=== PATIENT | female | born 1955 | race Asian ===

== ENCOUNTER 2016-06-07 01:23 | Inpatient (IN) | payer MEDICAID, OTHER ==
[~2016-06-07] VITALS: Ht 167.6 cm; Wt 63.5 kg
[~2016-06-07 01:23] MED LIST: ALBUTEROL; ASPI-1035 PO; FENO160T5 PO; GLIM4TAB2 PO; LOVA40TA73 PO; METF100P3 MC; MONT10TA21 PO
[2016-06-07] MEDS ORDERED: METHYLPREDNISOLONE SOD SUCC 125 MG/2 ML VIAL IV STA (02:04)
[2016-06-07] MEDS ORDERED: ALBUTEROL (0.083%) 2.5MG/3ML NEB HHN STA (02:04)
[2016-06-07] MEDS ORDERED: SODIUM CHLORIDE 0.9% 1,000 ML IV ONE (02:04)
[2016-06-07] MEDS ORDERED: IPRATROPIUM BROMIDE (0.02%) 0.5MG/2.5ML NEB HHN STA (02:04)
[2016-06-07 02:22] LABS: BASOPHILS % 0.6 % (0.0-2.0); EOSINOPHILS % 10.2 % (0.0-5.0); HEMATOCRIT. 41.8 % (36.0-48.0); HEMOGLOBIN. 13.9 g/dL (12.0-16.0); LYMPHOCYTES % 27.4 % (20.0-50.0); MEAN CORPUSCULAR HEMOGLOBIN 28.4 pg (28.0-32.0); MEAN CORPUSCULAR HGB CONC 33.4 g/dL (31.0-37.0); MEAN CORPUSCULAR VOLUME 85.1 fL (81.0-99.0); MEAN PLATELET VOLUME 7.9 fl (7.4-10.4); MONOCYTES % 4.9 % (2.0-8.0); NEUTROPHILS % 56.9 % (40.0-76.0); PLATELET 249 x1000/uL (130-400); RED BLOOD CELL COUNT 4.91 mill/uL (4.2-5.4); RED CELL DISTRIBUTION WIDTH 13.7 % (11.6-14.6); WHITE BLOOD COUNT 12.9 x1000/uL (4.5-11.0)
[2016-06-07 02:37] LABS: ANION GAP 13; CALCIUM 8.5 mg/dL (8.5-10.1); CARBON DIOXIDE 25 mEq/L (21-32); CHLORIDE 106 mEq/L (98-107); INDEX HEMOLYSI 2 (1-3); INDEX ICTERIC 1 (1-4); INDEX LIPEMIC 1 (1-3); NT PRO B-TYPE NATRIURETIC PEP 61 pg/mL (5-125); TROPONIN I 0.02 ng/mL (0.00-0.04); UREA NITROGEN BLOOD 11 mg/dL (7-21); eGFR > 60 mL/min (>60)
[2016-06-07 08:00] VITALS: BP 105/65
[2016-06-07] MEDS ORDERED: CLONIDINE 0.1MG TABLET PO PRN (08:45)
[2016-06-07] MEDS ORDERED: POTASSIUM CHLORIDE 20MEQ TABLET SR PO NR (08:45)
[2016-06-07] MEDS ORDERED: ACETAMINOPHEN 325MG TABLET PO PRN (08:45)
[2016-06-07] MEDS ORDERED: ONDANSETRON HCL 4MG/2ML VIAL IV PRN (08:45)
[2016-06-07] MEDS ORDERED: IPRATROPIUM/ALBUTEROL 0.5-3(2.5)MG/3ML NEB INH PRN (08:45)
[2016-06-07 09:00] VITALS: BP 105/65
[2016-06-07] MEDS ORDERED: FENOFIBRATE MICRONIZED 160 MG PO SCH (09:00)
[2016-06-07] MEDS ORDERED: MONTELUKAST SODIUM 10MG TABLET PO SCH (09:00)
[2016-06-07] MEDS ORDERED: METFORMIN HCL 1000 MG MC SCH (09:00)
[2016-06-07] MEDS ORDERED: MEDICATION NOT ON FORMULARY EA (Lovastatin 40 MG) PO SCH (09:00)
[2016-06-07] MEDS: GLIMEPIRIDE 4MG TABLET PO SCH ×2 (10:36→17:07)
[2016-06-07] MEDS: ASPIRIN 81MG EC TABLET PO SCH (10:36)
[2016-06-07] MEDS: FENOFIBRATE NANOCRYSTALLIZED 145MG TABLET PO SCH (10:36)
[2016-06-07] MEDS: ENOXAPARIN 40MG/0.4ML SYR SUBCUT SCH (10:36)
[2016-06-07] MEDS: IPRATROPIUM/ALBUTEROL 0.5-3(2.5)MG/3ML NEB HHN SCH ×3 (10:56→21:16)
[2016-06-07] MEDS ORDERED: LEVOFLOXACIN 500MG PREMIX 100 ML IV SCH (11:00)
[2016-06-07] MEDS ORDERED: ASPI-1035 PO (11:18)
[2016-06-07] MEDS ORDERED: METF10002 PO (11:18)
[2016-06-07] MEDS ORDERED: METHYLPREDNISOLONE SOD SUCC 125 MG/2 ML VIAL IV SCH (14:00)
[2016-06-07] MEDS ORDERED: PNEUMOCOCCAL 23-VAL P-SAC VAC 0.5 ML IM ONE (14:00)
[2016-06-07] MEDS ORDERED: INFLUENZA VIRUS VACCINE 0.5ML SYR IM ONE (14:00)
[2016-06-07] MEDS: BUDESONIDE 0.5MG/2ML NEB HHN SCH ×2 (15:41→21:11)
[2016-06-07 16:00] VITALS: BP 101/69
[2016-06-07 16:58] LABS: CLARITY URINE CLEAR (CLEAR); COLOR URINE YELLOW (YELLOW); GLUCOSE URINE 3+ (NEGATIVE); KETONES URINE 2+ (NEGATIVE); LEUKOCYTE ESTERASE URINE NEGATIVE (NEGATIVE); NITRITE URINE NEGATIVE (NEGATIVE); OCCULT BLOOD URINE NEGATIVE (NEGATIVE); PROTEIN URINE NEGATIVE (NEGATIVE); SPECIFIC GRAVITY URINE 1.029 (1.005-1.030); UROBILINOGEN URINE 0.2 E.U./dL (0.2-1.0)
[2016-06-07] MEDS: METFORMIN HCL 500MG TABLET PO SCH (17:07)
[2016-06-07 17:26] LABS: *AMPHETAMINES SCREEN URINE NEGATIVE (NEGATIVE); *BARBITURATES SCREEN URINE NEGATIVE (NEGATIVE); *BENZODIAZEPINES SCREEN URINE NEGATIVE (NEGATIVE); *COCAINE SCREEN URINE NEGATIVE (NEGATIVE); CANNABINOID URINE SCREEN NEGATIVE (NEGATIVE); ECSTASY MDMA SCREEN URINE NEGATIVE (NEGATIVE); METHADONE URINE SCREEN NEGATIVE (NEGATIVE); OPIATES URINE SCREEN NEGATIVE (NEGATIVE); PHENCYCLIDINE URINE SCREEN NEGATIVE (NEGATIVE)
[2016-06-07 17:49] LABS: BACTERIA URINE TRACE; RBC URINE 0-2 /hpf (0-2); SQUAMOUS EPITHELIAL CELL URINE FEW /lpf (RARE/1+); WBC URINE 0-2 /hpf (0-2)
[2016-06-07] MEDS: FAMOTIDINE 20MG/2ML VIAL IV SCH (20:16)
[2016-06-07 20:40] VITALS: BP 105/70
[2016-06-07] MEDS ORDERED: ATORVASTATIN CALCIUM 10MG TABLET PO SCH (21:00)
[2016-06-08] VITALS: BP 95/65
[2016-06-08] MEDS: IPRATROPIUM/ALBUTEROL 0.5-3(2.5)MG/3ML NEB HHN SCH ×3 (00:29→08:07)
[2016-06-08 04:00] VITALS: BP 102/67
[2016-06-08 06:07] LABS: BASOPHILS % 0.5 % (0.0-2.0); EOSINOPHILS % 4.6 % (0.0-5.0); HEMATOCRIT. 39.9 % (36.0-48.0); HEMOGLOBIN. 13.2 g/dL (12.0-16.0); LYMPHOCYTES % 26.4 % (20.0-50.0); MEAN CORPUSCULAR HEMOGLOBIN 28.2 pg (28.0-32.0); MEAN CORPUSCULAR VOLUME 85.5 fL (81.0-99.0); MEAN PLATELET VOLUME 8.6 fl (7.4-10.4); MONOCYTES % 7.2 % (2.0-8.0); NEUTROPHILS % 61.3 % (40.0-76.0); PLATELET 250 x1000/uL (130-400); RED BLOOD CELL COUNT 4.67 mill/uL (4.2-5.4); RED CELL DISTRIBUTION WIDTH 13.7 % (11.6-14.6)
[2016-06-08 06:33] LABS: ANION GAP 12; CALCIUM 8.5 mg/dL (8.5-10.1); CARBON DIOXIDE 27 mEq/L (21-32); CHLORIDE 104 mEq/L (98-107); INDEX HEMOLYSI 1 (1-3); INDEX ICTERIC 1 (1-4); INDEX LIPEMIC 1 (1-3); UREA NITROGEN BLOOD 14 mg/dL (7-21); eGFR > 60 mL/min (>60)
[2016-06-08] MEDS: METFORMIN HCL 500MG TABLET PO SCH (08:47)
[2016-06-08] MEDS: ENOXAPARIN 40MG/0.4ML SYR SUBCUT SCH (08:47)
[2016-06-08] MEDS: FAMOTIDINE 20MG/2ML VIAL IV SCH (08:47)
[2016-06-08] MEDS: ASPIRIN 81MG EC TABLET PO SCH (08:48)
[2016-06-08] MEDS: GLIMEPIRIDE 4MG TABLET PO SCH (08:48)
[2016-06-08] MEDS: FENOFIBRATE NANOCRYSTALLIZED 145MG TABLET PO SCH (08:48)
[2016-06-08] MEDS ORDERED: Fluticasone Propionate BOTHNSTRLS (10:18)
[2016-06-08 10:28] VITALS: BP 95/60
[2016-06-08] MEDS ORDERED: FLUTICASONE PROPIONATE 50MCG/SPRAY BOTTLE BOTHNSTRLS SCH (21:00)
== END 2016-06-08 11:05 | disposition home or self-care (01) | DRG 133 ==
LOC: ER 01:24 → 5WST 04:07
PROVIDERS: ADMIT Internal Medicine Nephrology; ATTEND Internal Medicine Nephrology
DX: J96.01 Acute respiratory failure with hypoxia (principal); E11.65 Type 2 diabetes mellitus with hyperglycemia; J44.9 Chronic obstructive pulmonary disease, unspecified; I10 Essential (primary) hypertension; J45.901 Unspecified asthma with (acute) exacerbation; E78.00 Pure hypercholesterolemia, unspecified; E87.6 Hypokalemia; D72.829 Elevated white blood cell count, unspecified; J30.9 Allergic rhinitis, unspecified
CPT/HCPCS: 36415; 71010; 80048; 80061; 80305; 81001; 83036; 83880; 84484; 85025; 93005; 96361; 96374; 99285; J1650; J1956; J2930; J3490; J7030; J7611; J7620; J7626

== ENCOUNTER 2016-07-03 02:08 | Inpatient (IN) | payer BC, MEDICAID ==
[~2016-07-03] VITALS: Ht 157.5 cm; Wt 67.8 kg
[~2016-07-03 02:08] MED LIST changes: +Fluticasone Propionate BOTHNSTRLS
[2016-07-03] MEDS ORDERED: IPRATROPIUM BROMIDE (0.02%) 0.5MG/2.5ML NEB HHN STA (02:15)
[2016-07-03] MEDS ORDERED: METHYLPREDNISOLONE SOD SUCC 125 MG/2 ML VIAL IV STA (02:15)
[2016-07-03] MEDS ORDERED: ALBUTEROL (0.083%) 2.5MG/3ML NEB HHN STA (02:15)
[2016-07-03 02:43] LABS: BASOPHILS % 1.2 % (0.0-2.0); EOSINOPHILS % 12.6 % (0.0-5.0); HEMATOCRIT. 42.4 % (36.0-48.0); HEMOGLOBIN. 14.5 g/dL (12.0-16.0); LYMPHOCYTES % 28.2 % (20.0-50.0); MEAN CORPUSCULAR HEMOGLOBIN 28.6 pg (28.0-32.0); MEAN CORPUSCULAR HGB CONC 34.2 g/dL (31.0-37.0); MEAN CORPUSCULAR VOLUME 83.6 fL (81.0-99.0); MONOCYTES % 7.7 % (2.0-8.0); NEUTROPHILS % 50.3 % (40.0-76.0); PLATELET 276 x1000/uL (130-400); RED BLOOD CELL COUNT 5.08 mill/uL (4.2-5.4); RED CELL DISTRIBUTION WIDTH 13.3 % (11.6-14.6); WHITE BLOOD COUNT 7.5 x1000/uL (4.5-11.0)
[2016-07-03 02:48] LABS: PROTHROMBIN TIME 10.4 sec
[2016-07-03 02:57] LABS: ALANINE AMINOTRANSFERASE 20 IU/L (13-61); ALBUMIN 3.8 g/dL (3.4-5.0); CALCIUM 8.8 mg/dL (8.5-10.1); CARBON DIOXIDE 28 mEq/L (21-32); INDEX HEMOLYSI 1 (1-3); INDEX ICTERIC 1 (1-4); INDEX LIPEMIC 1 (1-3); NT PRO B-TYPE NATRIURETIC PEP 14 pg/mL (5-125); TROPONIN I < 0.02 ng/mL (0.00-0.04); UREA NITROGEN BLOOD 9 mg/dL (7-21); eGFR > 60 mL/min (>60)
[2016-07-03 03:25] LABS: ANION GAP 15; CHLORIDE 103 mEq/L (98-107)
[2016-07-03 08:50] VITALS: BP 101/68
[2016-07-03] MEDS ORDERED: INSU3INS6 SUBCUT (09:29)
[2016-07-03] MEDS ORDERED: ASPI-1035 PO (09:29)
[2016-07-03] MEDS ORDERED: METF10002 PO (09:29)
[2016-07-03] MEDS ORDERED: ALBU6.7H INH (09:29)
[2016-07-03] MEDS ORDERED: NA PHOS,M-B/NA PHOS,DI-BA ENEMA 118ML PR PRN (09:45)
[2016-07-03] MEDS ORDERED: DIPHENHYDRAMINE 50MG/ML VIAL IV PRN (09:45)
[2016-07-03] MEDS ORDERED: MAGNESIUM/ALUMINUM HYDROXIDE/SIMETHICONE 30ML UDC PO PRN (09:45)
[2016-07-03] MEDS ORDERED: ACETAMINOPHEN 325MG TABLET PO PRN (09:45)
[2016-07-03] MEDS ORDERED: LORAZEPAM 2MG/ML CPJ IV PRN (09:45)
[2016-07-03] MEDS ORDERED: TRAMADOL 50MG TABLET PO PRN (09:45)
[2016-07-03] MEDS ORDERED: IPRATROPIUM/ALBUTEROL 0.5-3(2.5)MG/3ML NEB INH PRN (09:45)
[2016-07-03] MEDS ORDERED: NITROGLYCERIN 0.4MG TABLET SL SL PRN (09:45)
[2016-07-03] MEDS ORDERED: CLONIDINE 0.1MG TABLET PO PRN (09:45)
[2016-07-03] MEDS ORDERED: ZOLPIDEM TARTRATE 5MG TABLET PO PRN (09:45)
[2016-07-03] MEDS ORDERED: GUAIFENESIN 200MG/10ML SUGAR FREE UDC PO PRN (09:45)
[2016-07-03] MEDS ORDERED: DOCUSATE SODIUM 100MG CAPSULE PO PRN (09:45)
[2016-07-03] MEDS ORDERED: KETOROLAC 30MG/ML VIAL IV PRN (09:45)
[2016-07-03] MEDS ORDERED: DEXTROSE 50% WATER 50ML SYRINGE IV PRN (09:45)
[2016-07-03] MEDS ORDERED: ONDANSETRON HCL 4MG/2ML VIAL IV PRN (09:45)
[2016-07-03] MEDS: ENOXAPARIN 40MG/0.4ML SYR SUBCUT SCH (11:29)
[2016-07-03] MEDS: INSULIN DETEMIR UD 100 UNITS/ML SYR SUBCUT SCH (11:30)
[2016-07-03] MEDS ORDERED: LEVOFLOXACIN 500MG PREMIX 100 ML IV SCH (11:30)
[2016-07-03 12:00] VITALS: BP 98/60
[2016-07-03] MEDS: IPRATROPIUM/ALBUTEROL 0.5-3(2.5)MG/3ML NEB HHN SCH ×3 (12:05→20:40)
[2016-07-03] MEDS: BLOOD SUGAR DIAGNOSTIC STRIP TEST SCH ×3 (12:39→21:36)
[2016-07-03] MEDS: INSULIN LISPRO 100 UNITS/ML SUBCUT SCH ×5 (12:49→21:40)
[2016-07-03] MEDS ORDERED: PNEUMOCOCCAL 23-VAL P-SAC VAC 0.5 ML IM ONE (13:00)
[2016-07-03 14:24] LABS: INDEX LIPEMIC 1 (1-3)
[2016-07-03 14:27] LABS: CREATINE KINASE 56 IU/L (26-192); CREATINE KINASE MB FRACTION 0.8 ng/mL (0.5-3.6); INDEX HEMOLYSI 1 (1-3); TROPONIN I < 0.02 ng/mL (0.00-0.04)
[2016-07-03] MEDS: METHYLPREDNISOLONE SOD SUCC 125 MG/2 ML VIAL IV SCH ×2 (15:19→21:32)
[2016-07-03 16:00] VITALS: BP 103/68
[2016-07-03 20:00] VITALS: BP 102/63
[2016-07-03] MEDS: GUAIFENESIN 600MG ER TABLET PO SCH (21:32)
[2016-07-03] MEDS: ASCORBIC ACID 500 MG TABLET PO SCH (21:32)
[2016-07-03 23:36] LABS: CREATINE KINASE 48 IU/L (26-192); CREATINE KINASE MB FRACTION 0.9 ng/mL (0.5-3.6); INDEX HEMOLYSI 1 (1-3); TROPONIN I < 0.02 ng/mL (0.00-0.04)
[2016-07-04] VITALS: BP 102/60
[2016-07-04] MEDS: IPRATROPIUM/ALBUTEROL 0.5-3(2.5)MG/3ML NEB HHN SCH ×3 (00:45→08:06)
[2016-07-04 04:00] VITALS: BP 92/61
[2016-07-04] MEDS: METHYLPREDNISOLONE SOD SUCC 125 MG/2 ML VIAL IV SCH (05:38)
[2016-07-04] MEDS: BLOOD SUGAR DIAGNOSTIC STRIP TEST SCH (05:51)
[2016-07-04 08:00] VITALS: BP 90/65
[2016-07-04] MEDS: ASCORBIC ACID 500 MG TABLET PO SCH (08:36)
[2016-07-04] MEDS: GUAIFENESIN 600MG ER TABLET PO SCH (08:36)
[2016-07-04] MEDS: INSULIN LISPRO 100 UNITS/ML SUBCUT SCH ×2 (08:37)
[2016-07-04] MEDS ORDERED: ASPIRIN 325MG EC TABLET PO SCH (09:00)
[2016-07-04] MEDS ORDERED: ZINC SULFATE 220 MG ( 50 ) CAPSULE PO SCH (09:00)
[2016-07-04] MEDS ORDERED: PANTOPRAZOLE SODIUM 40 MG/VIAL IV SCH (10:30)
[2016-07-04] MEDS: ENOXAPARIN 40MG/0.4ML SYR SUBCUT SCH (10:59)
[2016-07-04] MEDS: INSULIN DETEMIR UD 100 UNITS/ML SYR SUBCUT SCH (11:01)
[2016-07-04 11:15] VITALS: BP 92/59
[2016-07-04 11:45] VITALS: BP 92/59
[2016-07-04 12:49] LABS: *AMPHETAMINES SCREEN URINE NEGATIVE (NEGATIVE); *BARBITURATES SCREEN URINE NEGATIVE (NEGATIVE); *BENZODIAZEPINES SCREEN URINE NEGATIVE (NEGATIVE); *COCAINE SCREEN URINE NEGATIVE (NEGATIVE); CANNABINOID URINE SCREEN NEGATIVE (NEGATIVE); ECSTASY MDMA SCREEN URINE NEGATIVE (NEGATIVE); METHADONE URINE SCREEN NEGATIVE (NEGATIVE); OPIATES URINE SCREEN NEGATIVE (NEGATIVE); PHENCYCLIDINE URINE SCREEN NEGATIVE (NEGATIVE)
== END 2016-07-04 11:52 | disposition home or self-care (01) | DRG 140 ==
LOC: ER 02:33 → 7WST 05:30 → MERGE 05:30
PROVIDERS: ADMIT Internal Medicine; ATTEND Internal Medicine
DX: J44.1 Chronic obstructive pulmonary disease with (acute) exacerbation (principal); E11.65 Type 2 diabetes mellitus with hyperglycemia; I10 Essential (primary) hypertension; J45.909 Unspecified asthma, uncomplicated
CPT/HCPCS: 36415; 71010; 80053; 80305; 82550; 82553; 82947; 82962; 83036; 83880; 84484; 85025; 85610; 90732; 93005; 93970; 96374; 99285; C9113; J1650; J1815; J1956; J2930; J7050; J7611; J7620

== ENCOUNTER 2016-07-08 06:30 | Inpatient (IN) | payer SELFPAY ==
[~2016-07-08] VITALS: Ht 157.5 cm; Wt 66.2 kg
[2016-07-08] VITALS (7 sets, daily range): BP systolic 93–130; BP diastolic 63–73
[~2016-07-08 06:30] MED LIST changes: +ALBU6.7H INH; +INSU3INS6 SUBCUT; +METF10002 PO
[2016-07-08] MEDS ORDERED: METHYLPREDNISOLONE SOD SUCC 125 MG/2 ML VIAL IV STA (06:32)
[2016-07-08] MEDS ORDERED: SODIUM CHLORIDE 0.9% 1,000 ML IV ONE (06:32)
[2016-07-08] MEDS ORDERED: IPRATROPIUM/ALBUTEROL 0.5-3(2.5)MG/3ML NEB HHN ONE (06:45)
[2016-07-08] MEDS ORDERED: MAGNESIUM 2 G PREMIX 50 ML IV ONE (06:45)
[2016-07-08 07:00] LABS: BASOPHILS % 0.7 % (0.0-2.0); EOSINOPHILS % 11.1 % (0.0-5.0); HEMOGLOBIN. 14.4 g/dL (12.0-16.0); LYMPHOCYTES % 40.1 % (20.0-50.0); MEAN CORPUSCULAR HEMOGLOBIN 28.3 pg (28.0-32.0); MEAN CORPUSCULAR HGB CONC 32.7 g/dL (31.0-37.0); MEAN CORPUSCULAR VOLUME 86.6 fL (81.0-99.0); MEAN PLATELET VOLUME 8.5 fl (7.4-10.4); MONOCYTES % 5.2 % (2.0-8.0); NEUTROPHILS % 42.9 % (40.0-76.0); PLATELET 332 x1000/uL (130-400); RED BLOOD CELL COUNT 5.09 mill/uL (4.2-5.4); RED CELL DISTRIBUTION WIDTH 13.3 % (11.6-14.6); WHITE BLOOD COUNT 12.2 x1000/uL (4.5-11.0)
[2016-07-08 07:02] LABS: PROTHROMBIN TIME 10.2 sec
[2016-07-08 07:07] LABS: BG BASE EXCESS -4.6 mmol/L (-2.0-2.0); BG BILEVEL POS AIRWAY PRESSURE 15/5; BG CARBOXYHEMOGLOBIN 0.2 % (0.5-1.5); BG DEOXYHEMOGLOBIN 0.7 % (0.0-5.0); BG METHEMOGLOBIN 0.2 % (0.0-1.5); BG OXYGEN SATURATION 99.3 % (92.0-98.5); BG OXYHEMOGLOBIN 98.9 % (94.0-97.0); BG PCO2 46.6 mmHg (35.0-45.0); BG PH 7.292 (7.350-7.450); BG PO2 234.2 mmHg (75.0-100.0); BG SAMPLE SITE RIGHT RADIAL; BG TOTAL HEMOGLOBIN 13.9 g/dL (12.0-18.0); BG VENT MODE MASK - BIPAP; BG VENT RATE 20 set
[2016-07-08 07:09] LABS: ALANINE AMINOTRANSFERASE 73 IU/L (13-61); ALBUMIN 3.4 g/dL (3.4-5.0); ANION GAP 20; CALCIUM 8.4 mg/dL (8.5-10.1); CARBON DIOXIDE 20 mEq/L (21-32); CHLORIDE 102 mEq/L (98-107); INDEX HEMOLYSI 3 (1-3); INDEX ICTERIC 1 (1-4); INDEX LIPEMIC 1 (1-3); NT PRO B-TYPE NATRIURETIC PEP 42 pg/mL (5-125); TROPONIN I < 0.02 ng/mL (0.00-0.04); UREA NITROGEN BLOOD 10 mg/dL (7-21); eGFR > 60 mL/min (>60)
[2016-07-08] MEDS ORDERED: INSULIN REGULAR (HUMULIN R) UD 100 UNITS/ML SYR SUBCUT ONE (07:15)
[2016-07-08] MEDS ORDERED: INSULIN REGULAR (HUMULIN R) 300UNITS/3ML ONE (08:38)
[2016-07-08] MEDS ORDERED: CLONIDINE 0.1MG TABLET PO PRN (09:30)
[2016-07-08 11:23] LABS: CLARITY URINE CLEAR (CLEAR); COLOR URINE YELLOW (YELLOW); GLUCOSE URINE 3+ (NEGATIVE); KETONES URINE 1+ (NEGATIVE); LEUKOCYTE ESTERASE URINE NEGATIVE (NEGATIVE); NITRITE URINE NEGATIVE (NEGATIVE); OCCULT BLOOD URINE NEGATIVE (NEGATIVE); PROTEIN URINE NEGATIVE (NEGATIVE); SPECIFIC GRAVITY URINE 1.026 (1.005-1.030); UROBILINOGEN URINE 0.2 E.U./dL (0.2-1.0)
[2016-07-08 11:35] LABS: SQUAMOUS EPITHELIAL CELL URINE 1+ /lpf (RARE/1+)
[2016-07-08 11:36] LABS: BACTERIA URINE NONE SEEN; RBC URINE 0-2 /hpf (0-2); WBC URINE 0-2 /hpf (0-2)
[2016-07-08 11:37] LABS: YEAST URINE RARE
[2016-07-08 11:42] LABS: *AMPHETAMINES SCREEN URINE NEGATIVE (NEGATIVE); *BARBITURATES SCREEN URINE NEGATIVE (NEGATIVE); *BENZODIAZEPINES SCREEN URINE NEGATIVE (NEGATIVE); *COCAINE SCREEN URINE NEGATIVE (NEGATIVE); CANNABINOID URINE SCREEN NEGATIVE (NEGATIVE); ECSTASY MDMA SCREEN URINE NEGATIVE (NEGATIVE); METHADONE URINE SCREEN NEGATIVE (NEGATIVE); OPIATES URINE SCREEN NEGATIVE (NEGATIVE); PHENCYCLIDINE URINE SCREEN NEGATIVE (NEGATIVE)
[2016-07-08] MEDS ORDERED: GUAI600T PO (12:19)
[2016-07-08] MEDS ORDERED: TIOT18CA3 INH (12:19)
[2016-07-08] MEDS ORDERED: INSU100C6 SQ (12:19)
[2016-07-08] MEDS ORDERED: INSLAN SQ (12:19)
[2016-07-08] MEDS ORDERED: FLUT1DIS3 INH (12:19)
[2016-07-08] MEDS ORDERED: HYDROCODONE/ACETAMINOPHEN 5/325MG TABLET PO PRN (12:30)
[2016-07-08] MEDS ORDERED: DEXTROSE 50% WATER 50ML SYRINGE IV PRN (12:30)
[2016-07-08] MEDS ORDERED: HYDROMORPHONE HCL/PF 2MG/ML CPJ IV PRN (12:30)
[2016-07-08] MEDS ORDERED: MAGNESIUM/ALUMINUM HYDROXIDE/SIMETHICONE 30ML UDC PO PRN (12:30)
[2016-07-08] MEDS ORDERED: DOCUSATE SODIUM 100MG CAPSULE PO PRN (12:30)
[2016-07-08] MEDS ORDERED: DIPHENHYDRAMINE 50MG/ML VIAL IV PRN (12:30)
[2016-07-08] MEDS ORDERED: NA PHOS,M-B/NA PHOS,DI-BA ENEMA 118ML PR PRN (12:30)
[2016-07-08] MEDS: ENOXAPARIN 40MG/0.4ML SYR SUBCUT SCH (12:54)
[2016-07-08] MEDS: BLOOD SUGAR DIAGNOSTIC STRIP TEST SCH ×3 (12:55→21:53)
[2016-07-08] MEDS ORDERED: ACETAMINOPHEN 325MG TABLET PO PRN (13:00)
[2016-07-08] MEDS ORDERED: LORAZEPAM 2MG/ML CPJ IV PRN (13:00)
[2016-07-08] MEDS ORDERED: GUAIFENESIN 200MG/10ML SUGAR FREE UDC PO PRN (13:00)
[2016-07-08] MEDS: INSULIN LISPRO 100 UNITS/ML SUBCUT SCH ×3 (13:02→21:53)
[2016-07-08] MEDS: METHYLPREDNISOLONE SOD SUCC 125 MG/2 ML VIAL IV SCH ×2 (13:20→21:52)
[2016-07-08] MEDS ORDERED: ONDANSETRON HCL 4MG/2ML VIAL IV PRN (13:30)
[2016-07-08] MEDS ORDERED: LEVOFLOXACIN 500MG PREMIX 100 ML IV SCH (14:00)
[2016-07-08 17:13] LABS: ANION GAP 14; CALCIUM 8.5 mg/dL (8.5-10.1); CARBON DIOXIDE 26 mEq/L (21-32); CHLORIDE 103 mEq/L (98-107); CREATINE KINASE 45 IU/L (26-192); CREATINE KINASE MB FRACTION 1.5 ng/mL (0.5-3.6); INDEX HEMOLYSI 1 (1-3); INDEX ICTERIC 1 (1-4); INDEX LIPEMIC 1 (1-3); NT PRO B-TYPE NATRIURETIC PEP 467 pg/mL (5-125); TROPONIN I 0.09 ng/mL (0.00-0.04); UREA NITROGEN BLOOD 10 mg/dL (7-21); eGFR > 60 mL/min (>60)
[2016-07-08] MEDS: IPRATROPIUM/ALBUTEROL 0.5-3(2.5)MG/3ML NEB INH PRN (20:33)
[2016-07-08] MEDS: BUDESONIDE 0.5MG/2ML NEB HHN SCH (20:33)
[2016-07-08] MEDS: FAMOTIDINE 20MG/2ML VIAL IV SCH (21:52)
[2016-07-08] MEDS: LORATADINE 10MG TABLET PO SCH (21:52)
[2016-07-09] VITALS (11 sets, daily range): BP systolic 92–117; BP diastolic 34–72
[2016-07-09] MEDS: IPRATROPIUM/ALBUTEROL 0.5-3(2.5)MG/3ML NEB INH PRN ×3 (00:29→08:48)
[2016-07-09 01:18] LABS: CREATINE KINASE MB FRACTION 0.9 ng/mL (0.5-3.6); TROPONIN I 0.06 ng/mL (0.00-0.04)
[2016-07-09] MEDS: METHYLPREDNISOLONE SOD SUCC 125 MG/2 ML VIAL IV SCH ×4 (01:59→22:18)
[2016-07-09 05:39] LABS: BASOPHILS % 0.1 % (0.0-2.0); EOSINOPHILS % 0.1 % (0.0-5.0); HEMATOCRIT. 41.1 % (36.0-48.0); HEMOGLOBIN. 13.6 g/dL (12.0-16.0); LYMPHOCYTES % 9.9 % (20.0-50.0); MEAN CORPUSCULAR HEMOGLOBIN 28.2 pg (28.0-32.0); MEAN CORPUSCULAR HGB CONC 33.1 g/dL (31.0-37.0); MEAN PLATELET VOLUME 8.4 fl (7.4-10.4); MONOCYTES % 1.8 % (2.0-8.0); NEUTROPHILS % 88.1 % (40.0-76.0); PLATELET 274 x1000/uL (130-400); RED BLOOD CELL COUNT 4.84 mill/uL (4.2-5.4); RED CELL DISTRIBUTION WIDTH 13.2 % (11.6-14.6); WHITE BLOOD COUNT 9.4 x1000/uL (4.5-11.0)
[2016-07-09 06:34] LABS: CHLORIDE 100 mEq/L (98-107); INDEX HEMOLYSI 1 (1-3); INDEX ICTERIC 1 (1-4); INDEX LIPEMIC 1 (1-3)
[2016-07-09 07:12] LABS: ALANINE AMINOTRANSFERASE 49 IU/L (13-61); ALBUMIN 3.2 g/dL (3.4-5.0); ANION GAP 18; CALCIUM 8.4 mg/dL (8.5-10.1); CARBON DIOXIDE 23 mEq/L (21-32); CREATINE KINASE 37 IU/L (26-192); CREATINE KINASE MB FRACTION 0.9 ng/mL (0.5-3.6); HDL CHOLESTEROL 65 mg/dL (40-59); LDL CHOLESTEROL 162 mg/dL (5-100); T4 FREE 1.29 ng/dL (0.76-1.46); TRIGLYCERIDE 101 mg/dL (0-150); UREA NITROGEN BLOOD 13 mg/dL (7-21); eGFR > 60 mL/min (>60)
[2016-07-09] MEDS: INSULIN LISPRO 100 UNITS/ML SUBCUT SCH ×7 (08:18→22:17)
[2016-07-09] MEDS: BLOOD SUGAR DIAGNOSTIC STRIP TEST SCH ×4 (08:19→21:00)
[2016-07-09] MEDS: BUDESONIDE 0.5MG/2ML NEB HHN SCH ×2 (08:48→19:58)
[2016-07-09] MEDS ORDERED: FUROSEMIDE 40MG/4ML VIAL IV SCH (09:00)
[2016-07-09] MEDS: ASPIRIN 81MG EC TABLET PO SCH (09:42)
[2016-07-09] MEDS: FAMOTIDINE 20MG/2ML VIAL IV SCH ×2 (09:42→22:18)
[2016-07-09] MEDS: ENOXAPARIN 40MG/0.4ML SYR SUBCUT SCH (12:49)
[2016-07-09] MEDS ORDERED: DEXTROSE 50% WATER 50ML SYRINGE IV PRN (18:15)
[2016-07-09] MEDS ORDERED: BLOOD SUGAR DIAGNOSTIC STRIP TEST SCH (21:00)
[2016-07-09] MEDS: LORATADINE 10MG TABLET PO SCH (22:18)
[2016-07-10] VITALS (10 sets, daily range): BP systolic 103–156; BP diastolic 63–77
[2016-07-10] MEDS: METHYLPREDNISOLONE SOD SUCC 125 MG/2 ML VIAL IV SCH ×2 (02:44→09:03)
[2016-07-10] MEDS: BLOOD SUGAR DIAGNOSTIC STRIP TEST SCH ×4 (08:24→21:05)
[2016-07-10] MEDS: ASPIRIN 81MG EC TABLET PO SCH (09:04)
[2016-07-10] MEDS: FAMOTIDINE 20MG/2ML VIAL IV SCH ×2 (09:04→21:00)
[2016-07-10] MEDS: INSULIN LISPRO 100 UNITS/ML SUBCUT SCH ×7 (09:06→21:00)
[2016-07-10] MEDS: IPRATROPIUM/ALBUTEROL 0.5-3(2.5)MG/3ML NEB INH PRN (09:40)
[2016-07-10] MEDS: BUDESONIDE 0.5MG/2ML NEB HHN SCH ×2 (09:41→20:28)
[2016-07-10] MEDS: ENOXAPARIN 40MG/0.4ML SYR SUBCUT SCH (12:19)
[2016-07-10] MEDS: PREDNISONE 20MG TABLET PO SCH (18:08)
[2016-07-10] MEDS: LORATADINE 10MG TABLET PO SCH (21:00)
[2016-07-11] VITALS: BP 94/57
[2016-07-11 04:00] VITALS: BP 119/78
[2016-07-11] MEDS: BLOOD SUGAR DIAGNOSTIC STRIP TEST SCH (05:40)
[2016-07-11 06:12] LABS: BASOPHILS % 0.2 % (0.0-2.0); HEMATOCRIT. 38.8 % (36.0-48.0); LYMPHOCYTES % 17.4 % (20.0-50.0); MEAN CORPUSCULAR HEMOGLOBIN 28.2 pg (28.0-32.0); MEAN CORPUSCULAR HGB CONC 33.4 g/dL (31.0-37.0); MEAN CORPUSCULAR VOLUME 84.3 fL (81.0-99.0); MEAN PLATELET VOLUME 8.7 fl (7.4-10.4); MONOCYTES % 7.1 % (2.0-8.0); NEUTROPHILS % 75.3 % (40.0-76.0); PLATELET 270 x1000/uL (130-400); RED CELL DISTRIBUTION WIDTH 13.1 % (11.6-14.6); WHITE BLOOD COUNT 10.6 x1000/uL (4.5-11.0)
[2016-07-11 06:29] LABS: ANION GAP 12; CALCIUM 8.7 mg/dL (8.5-10.1); CARBON DIOXIDE 27 mEq/L (21-32); CHLORIDE 102 mEq/L (98-107); INDEX HEMOLYSI 1 (1-3); INDEX ICTERIC 1 (1-4); INDEX LIPEMIC 1 (1-3); UREA NITROGEN BLOOD 22 mg/dL (7-21); eGFR > 60 mL/min (>60)
[2016-07-11 08:00] VITALS: BP 123/75
[2016-07-11] MEDS: ASPIRIN 81MG EC TABLET PO SCH (08:31)
[2016-07-11] MEDS: INSULIN LISPRO 100 UNITS/ML SUBCUT SCH ×2 (08:32→08:33)
[2016-07-11] MEDS: FAMOTIDINE 20MG/2ML VIAL IV SCH (08:35)
[2016-07-11] MEDS: PREDNISONE 20MG TABLET PO SCH (08:38)
[2016-07-11] MEDS: BUDESONIDE 0.5MG/2ML NEB HHN SCH (09:30)
[2016-07-11 10:11] VITALS: BP 142/92
== END 2016-07-11 10:30 | disposition home or self-care (01) | DRG 140 ==
LOC: ER 06:36 → 5EST 08:14 → 7WST 07-10 12:30
PROVIDERS: ADMIT Internal Medicine; ATTEND Internal Medicine
PROC: 5A09357 Assistance with Respiratory Ventilation, Less than 24 Consecutive Hours, Continuous Positive Airway Pressure (ICD-10-PCS; principal; 2016-07-08)
DX: J44.0 Chronic obstructive pulmonary disease with (acute) lower respiratory infection (principal); J96.00 Acute respiratory failure, unspecified whether with hypoxia or hypercapnia; G93.40 Encephalopathy, unspecified; J18.9 Pneumonia, unspecified organism; I11.0 Hypertensive heart disease with heart failure; E87.8 Other disorders of electrolyte and fluid balance, not elsewhere classified; I50.32 Chronic diastolic (congestive) heart failure; J45.901 Unspecified asthma with (acute) exacerbation; E11.65 Type 2 diabetes mellitus with hyperglycemia; J44.9 Chronic obstructive pulmonary disease, unspecified; E86.0 Dehydration; E78.5 Hyperlipidemia, unspecified; I25.10 Atherosclerotic heart disease of native coronary artery without angina pectoris
CPT/HCPCS: 36415; 36600; 71010; 80048; 80053; 80061; 80305; 81001; 82375; 82550; 82553; 82805; 82962; 83036; 83880; 84439; 84443; 84484; 85025; 85379; 85610; 87040; 87086; 93005; 93306; 93970; 94640; 94660; 96365; 96372; 96375; 99285; J1650; J1815; J1956; J2930; J3475; J3490; J7030; J7050; J7512; J7620; J7626

== ENCOUNTER 2016-08-13 23:51 | Emergency (ER) | payer SELFPAY ==
[~2016-08-13] VITALS: Ht 167.6 cm; Wt 82.0 kg
[~2016-08-13 23:51] MED LIST changes: -ALBUTEROL; +FLUT1DIS3 INH; +GUAI600T PO; +INSLAN SQ; +INSU100C6 SQ; -METF100P3 MC; +TIOT18CA3 INH
[2016-08-14] MEDS ORDERED: IPRATROPIUM BROMIDE (0.02%) 0.5MG/2.5ML NEB HHN STA (00:58)
[2016-08-14] MEDS ORDERED: ALBUTEROL (0.083%) 2.5MG/3ML NEB HHN STA (00:58)
[2016-08-14 01:14] LABS: EOSINOPHILS % 10.7 % (0.0-5.0); HEMATOCRIT. 41.4 % (36.0-48.0); LYMPHOCYTES % 26.9 % (20.0-50.0); MEAN CORPUSCULAR HEMOGLOBIN 28.1 pg (28.0-32.0); MEAN CORPUSCULAR VOLUME 83.1 fL (81.0-99.0); MEAN PLATELET VOLUME 8.1 fl (7.4-10.4); MONOCYTES % 9.8 % (2.0-8.0); NEUTROPHILS % 51.6 % (40.0-76.0); PLATELET 290 x1000/uL (130-400); RED BLOOD CELL COUNT 4.99 mill/uL (4.2-5.4)
[2016-08-14 01:32] LABS: CARBON DIOXIDE 27 mEq/L (21-32); CHLORIDE 99 mEq/L (98-107); TROPONIN I < 0.02 ng/mL (0.00-0.04)
[2016-08-14] MEDS ORDERED: INSULIN REGULAR (HUMULIN R) 300UNITS/3ML SUBCUT ONE (02:30)
[2016-08-14 02:49] VITALS: BP 109/66
== END 2016-08-14 04:09 | disposition home or self-care (01) ==
LOC: ER 08-14 00:20
DX: J45.901 Unspecified asthma with (acute) exacerbation (principal); J98.01 Acute bronchospasm; E11.9 Type 2 diabetes mellitus without complications; Z79.4 Long term (current) use of insulin; Z79.82 Long term (current) use of aspirin
CPT/HCPCS: 36415; 71010; 80048; 83880; 84484; 85025; 93005; 94640; 96372; 99285; J1815; J7611; Z7610

== ENCOUNTER 2016-08-20 17:11 | Inpatient (IN) | payer SELFPAY ==
[~2016-08-20] VITALS: Ht 167.6 cm; Wt 69.4 kg
[~2016-08-20 17:11] MED LIST changes: -ASPI-1035 PO; +ASPI-1159 PO
[2016-08-20] MEDS ORDERED: ASPIRIN 81MG TABLET PO STA (18:41)
[2016-08-20] MEDS ORDERED: METHYLPREDNISOLONE SOD SUCC 125 MG/2 ML VIAL IV STA (18:41)
[2016-08-20] MEDS ORDERED: MAGNESIUM 2 G PREMIX 50 ML IV ONE (18:45)
[2016-08-20] MEDS ORDERED: IPRATROPIUM/ALBUTEROL 0.5-3(2.5)MG/3ML NEB ONE (18:59)
[2016-08-20] MEDS ORDERED: IPRATROPIUM/ALBUTEROL 0.5-3(2.5)MG/3ML NEB HHN ONE (19:00)
[2016-08-20] MEDS ORDERED: LEVOFLOXACIN 750MG PREMIX 150 ML IV ONE (19:00)
[2016-08-20 19:07] LABS: HEMATOCRIT. 45.1 % (36.0-48.0); HEMOGLOBIN. 15.1 g/dL (12.0-16.0); MEAN CORPUSCULAR HEMOGLOBIN 28.4 pg (28.0-32.0); MEAN CORPUSCULAR VOLUME 84.8 fL (81.0-99.0); MEAN PLATELET VOLUME 8.3 fl (7.4-10.4); PLATELET 317 x1000/uL (130-400); RED BLOOD CELL COUNT 5.32 mill/uL (4.2-5.4); RED CELL DISTRIBUTION WIDTH 12.8 % (11.6-14.6)
[2016-08-20 19:13] LABS: PARTIAL THROMBOPLASTIN TIME 23.7 sec (24.0-34.0); PROTHROMBIN TIME 10.7 sec
[2016-08-20 19:21] LABS: CARBON DIOXIDE 24 mEq/L (21-32); CHLORIDE 103 mEq/L (98-107); CREATINE KINASE 60 IU/L (26-192); TROPONIN I < 0.02 ng/mL (0.00-0.04)
[2016-08-20 19:47] LABS: PLATELET ESTIMATE NORMAL
[2016-08-20] MEDS ORDERED: MAGNESIUM/ALUMINUM HYDROXIDE/SIMETHICONE 30ML UDC PO PRN (21:00)
[2016-08-20] MEDS ORDERED: LORAZEPAM 2MG/ML CPJ IV PRN (21:00)
[2016-08-20] MEDS ORDERED: GUAIFENESIN 200MG/10ML SUGAR FREE UDC PO PRN (21:00)
[2016-08-20] MEDS ORDERED: ONDANSETRON HCL 4MG/2ML VIAL IV PRN (21:00)
[2016-08-20] MEDS ORDERED: NA PHOS,M-B/NA PHOS,DI-BA ENEMA 118ML PR PRN (21:00)
[2016-08-20] MEDS ORDERED: KETOROLAC 15MG/ML VIAL IV PRN (21:00)
[2016-08-20] MEDS ORDERED: CLONIDINE 0.1MG TABLET PO PRN (21:00)
[2016-08-20] MEDS ORDERED: ACETAMINOPHEN 325MG TABLET PO PRN (21:00)
[2016-08-20] MEDS ORDERED: DIPHENHYDRAMINE 50MG/ML VIAL IV PRN (21:00)
[2016-08-20] MEDS ORDERED: ZOLPIDEM TARTRATE 5MG TABLET PO PRN (21:00)
[2016-08-20] MEDS ORDERED: IPRATROPIUM/ALBUTEROL 0.5-3(2.5)MG/3ML NEB INH PRN (21:00)
[2016-08-20] MEDS ORDERED: DOCUSATE SODIUM 100MG CAPSULE PO PRN (21:00)
[2016-08-20 21:12] LABS: BG BASE EXCESS -2.4 mmol/L (-2.0-2.0); BG BILEVEL POS AIRWAY PRESSURE 15/5; BG CARBOXYHEMOGLOBIN 0.3 % (0.5-1.5); BG DEOXYHEMOGLOBIN 0.8 % (0.0-5.0); BG FRACTION INSPIRED OXYGEN 50; BG HCO3 ACT 22.1 mmol/L (22.0-26.0); BG METHEMOGLOBIN 0.3 % (0.0-1.5); BG OXYGEN SATURATION 99.2 % (92.0-98.5); BG OXYHEMOGLOBIN 98.6 % (94.0-97.0); BG PCO2 37.4 mmHg (35.0-45.0); BG PH 7.389 (7.350-7.450); BG PO2 194.8 mmHg (75.0-100.0); BG SAMPLE SITE RIGHT BRACHIAL; BG TOTAL HEMOGLOBIN 14.7 g/dL (12.0-18.0); BG VENT MODE MASK - BIPAP; BG VENT RATE 18 set
[2016-08-20] MEDS ORDERED: DEXTROSE 50% WATER 50ML SYRINGE IV PRN (21:30)
[2016-08-20] MEDS ORDERED: SODIUM CHLORIDE 0.9% 500 ML IV ONE (22:15)
[2016-08-20] MEDS: INSULIN LISPRO 100 UNITS/ML SUBCUT SCH (22:23)
[2016-08-20] MEDS: BLOOD SUGAR DIAGNOSTIC STRIP TEST SCH (22:23)
[2016-08-20] MEDS: IPRATROPIUM/ALBUTEROL 0.5-3(2.5)MG/3ML NEB HHN SCH (23:33)
[2016-08-21] VITALS (8 sets, daily range): BP systolic 90–100; BP diastolic 63–71
[2016-08-21] MEDS ORDERED: INSULIN DETEMIR UD 100 UNITS/ML SYR SUBCUT SCH
[2016-08-21 00:35] LABS: CREATINE KINASE MB FRACTION 1.8 ng/mL (0.5-3.6); TROPONIN I 0.11 ng/mL (0.00-0.04)
[2016-08-21] MEDS ORDERED: METHYLPREDNISOLONE SOD SUCC 125 MG/2 ML VIAL IV SCH (06:00)
[2016-08-21] MEDS: IPRATROPIUM/ALBUTEROL 0.5-3(2.5)MG/3ML NEB HHN SCH ×2 (06:11→08:40)
[2016-08-21] MEDS: BLOOD SUGAR DIAGNOSTIC STRIP TEST SCH (08:01)
[2016-08-21] MEDS: INSULIN LISPRO 100 UNITS/ML SUBCUT SCH (08:49)
[2016-08-21] MEDS ORDERED: ENOXAPARIN 40MG/0.4ML SYR SUBCUT SCH (09:00)
[2016-08-21] MEDS ORDERED: GUAIFENESIN/DM 600MG/30MG ER TAB 12HR PO SCH (09:00)
[2016-08-21] MEDS ORDERED: CEFTRIAXONE 1 G PREMIX 50 ML IV SCH ×2 (09:00)
[2016-08-21] MEDS ORDERED: PANTOPRAZOLE SODIUM 40 MG/VIAL IV SCH (09:00)
[2016-08-21 09:13] LABS: CREATINE KINASE MB FRACTION 2.7 ng/mL (0.5-3.6); TROPONIN I 0.17 ng/mL (0.00-0.04)
[2016-08-21] MEDS ORDERED: INSULIN LISPRO 100 UNITS/ML SUBCUT SCH (11:45)
[2016-08-21] MEDS ORDERED: LEVOFLOXACIN 500MG PREMIX 100 ML IV SCH (19:00)
== END 2016-08-21 11:48 | disposition home or self-care (01) | DRG 720 ==
LOC: ER 19:41 → 5WST 20:48 → EDBEDREQTM 20:52 → EDBEDREQ 20:52 → EDBEDREQSVC 20:52 → ENRESERV 21:38 → 5EST 08-21 00:28
PROVIDERS: ADMIT Internal Medicine; ATTEND Internal Medicine
PROC: 5A09357 Assistance with Respiratory Ventilation, Less than 24 Consecutive Hours, Continuous Positive Airway Pressure (ICD-10-PCS; principal; 2016-08-20)
DX: A41.9 Sepsis, unspecified organism (principal); J96.00 Acute respiratory failure, unspecified whether with hypoxia or hypercapnia; J45.901 Unspecified asthma with (acute) exacerbation; E11.65 Type 2 diabetes mellitus with hyperglycemia; J44.9 Chronic obstructive pulmonary disease, unspecified; I10 Essential (primary) hypertension
CPT/HCPCS: 36415; 36600; 71010; 80053; 80061; 82375; 82550; 82553; 82805; 82962; 83036; 83605; 83690; 83880; 84443; 84484; 85025; 85610; 85730; 87040; 93005; 93970; 96365; 96375; 99285; C9113; J0696; J1650; J1815; J1956; J2930; J3475; J7040; J7050; J7620

== ENCOUNTER 2016-08-24 01:32 | Observation (INO) | payer SELFPAY ==
[~2016-08-24] VITALS: Ht 167.6 cm; Wt 68.5 kg
[2016-08-24] MEDS ORDERED: METHYLPREDNISOLONE SOD SUCC 125 MG/2 ML VIAL IV STA (03:51)
[2016-08-24] MEDS ORDERED: IPRATROPIUM BROMIDE (0.02%) 0.5MG/2.5ML NEB HHN STA (03:51)
[2016-08-24] MEDS ORDERED: ALBUTEROL (0.083%) 2.5MG/3ML NEB HHN STA (03:51)
[2016-08-24] MEDS ORDERED: ASPIRIN 81MG TABLET PO STA (03:51)
[2016-08-24 04:21] LABS: HEMATOCRIT. 42.1 % (36.0-48.0); HEMOGLOBIN. 14.1 g/dL (12.0-16.0); MEAN CORPUSCULAR HEMOGLOBIN 28.2 pg (28.0-32.0); MEAN CORPUSCULAR VOLUME 83.8 fL (81.0-99.0); MEAN PLATELET VOLUME 8.5 fl (7.4-10.4); PLATELET 269 x1000/uL (130-400); RED BLOOD CELL COUNT 5.03 mill/uL (4.2-5.4); RED CELL DISTRIBUTION WIDTH 12.6 % (11.6-14.6)
[2016-08-24 04:29] LABS: PARTIAL THROMBOPLASTIN TIME 25.9 sec (24.0-34.0); PROTHROMBIN TIME 10.7 sec
[2016-08-24 04:36] LABS: CARBON DIOXIDE 30 mEq/L (21-32); CHLORIDE 101 mEq/L (98-107); TROPONIN I < 0.02 ng/mL (0.00-0.04)
[2016-08-24 04:48] LABS: PLATELET ESTIMATE NORMAL
[2016-08-24 08:00] VITALS: BP 88/52
[2016-08-24 09:26] VITALS: BP 88/52
[2016-08-24] MEDS ORDERED: DEXTROSE 50% WATER 50ML SYRINGE IV PRN (10:00)
[2016-08-24] MEDS ORDERED: IPRATROPIUM/ALBUTEROL 0.5-3(2.5)MG/3ML NEB HHN PRN (10:00)
[2016-08-24] MEDS ORDERED: ENOXAPARIN 40MG/0.4ML SYR SUBCUT SCH (10:10)
[2016-08-24] MEDS ORDERED: METHYLPREDNISOLONE SOD SUCC 40 MG/ML VIAL IV SCH (10:15)
[2016-08-24] MEDS ORDERED: IPRATROPIUM/ALBUTEROL 0.5-3(2.5)MG/3ML NEB HHN SCH (12:00)
[2016-08-24] MEDS ORDERED: BLOOD SUGAR DIAGNOSTIC STRIP TEST SCH (12:40)
[2016-08-24] MEDS ORDERED: INSULIN LISPRO 100 UNITS/ML SUBCUT SCH ×2 (13:10)
[2016-08-24 14:58] VITALS: BP 95/62
[2016-08-24 16:58] LABS: CREATINE KINASE 36 IU/L (26-192); CREATINE KINASE MB FRACTION 2.4 ng/mL (0.5-3.6); TROPONIN I < 0.02 ng/mL (0.00-0.04)
[2016-08-24] MEDS ORDERED: GLIMEPIRIDE 4MG TABLET PO SCH (17:00)
[2016-08-24] MEDS ORDERED: METFORMIN HCL 500MG TABLET PO SCH (18:10)
[2016-08-24] MEDS ORDERED: GUAIFENESIN 600MG ER TABLET PO SCH (21:00)
[2016-08-24] MEDS ORDERED: ATORVASTATIN CALCIUM 10MG TABLET PO SCH (21:00)
[2016-08-25] MEDS ORDERED: MEDICATION NOT ON FORMULARY EA (Lovastatin 40 MG) PO SCH (09:00)
[2016-08-25] MEDS ORDERED: ASPIRIN 81MG EC TABLET PO SCH (09:00)
[2016-08-25] MEDS ORDERED: MONTELUKAST SODIUM 10MG TABLET PO SCH (21:00)
== END 2016-08-24 15:32 | disposition home or self-care (01) ==
LOC: ER 01:33 → 7WST 06:27 → INTOOBSV 06:27 → EDBEDREQ 06:43 → ENRESERV 07:10
PROVIDERS: ADMIT Internal Medicine; ATTEND Internal Medicine
DX: J45.901 Unspecified asthma with (acute) exacerbation (principal); J44.1 Chronic obstructive pulmonary disease with (acute) exacerbation; E11.9 Type 2 diabetes mellitus without complications; E78.00 Pure hypercholesterolemia, unspecified; E78.5 Hyperlipidemia, unspecified; I10 Essential (primary) hypertension
CPT/HCPCS: 36415; 71010; 80048; 80061; 82550; 82553; 82962; 83605; 83880; 84484; 85025; 85610; 85730; 87040; 93005; 96372; 96374; 96376; 99285; G0378; J1650; J1815; J2920; J2930; J7611; J7620

== ENCOUNTER 2016-09-25 05:47 | Inpatient (IN) | payer SELFPAY ==
[~2016-09-25] VITALS: Ht 157.5 cm; Wt 84.8 kg
[~2016-09-25 05:47] MED LIST changes: -GUAI600T PO; +GUAI600T26 PO
[2016-09-25] MEDS ORDERED: ADENOSINE 6 MG/2ML SYRINGE IV ONE (06:30)
[2016-09-25] MEDS ORDERED: ADENOSINE 3 MG/ML 2ML VIAL IV ONE (06:31)
[2016-09-25] MEDS ORDERED: SODIUM CHLORIDE 0.9% 1,000 ML IV ONE (06:45)
[2016-09-25 07:18] LABS: BASOPHILS % 1.3 % (0.0-2.0); CARBON DIOXIDE 24 mEq/L (21-32); CHLORIDE 101 mEq/L (98-107); D-DIMER < 0.19 mg/L FEU (<0.50); EOSINOPHILS % 3.1 % (0.0-5.0); HEMATOCRIT. 38.6 % (36.0-48.0); HEMOGLOBIN. 13.5 g/dL (12.0-16.0); LYMPHOCYTES % 19.9 % (20.0-50.0); MEAN CORPUSCULAR VOLUME 83.1 fL (81.0-99.0); MEAN PLATELET VOLUME 8.2 fl (7.4-10.4); NEUTROPHILS % 65.7 % (40.0-76.0); PARTIAL THROMBOPLASTIN TIME 27.5 sec (24.0-34.0); PLATELET 247 x1000/uL (130-400); PROTHROMBIN TIME 10.9 sec; RED BLOOD CELL COUNT 4.65 mill/uL (4.2-5.4); RED CELL DISTRIBUTION WIDTH 13.1 % (11.6-14.6)
[2016-09-25 07:21] LABS: TROPONIN I 0.09 ng/mL (0.00-0.04)
[2016-09-25] MEDS ORDERED: NA PHOS,M-B/NA PHOS,DI-BA ENEMA 118ML PR PRN (12:00)
[2016-09-25] MEDS ORDERED: DOCUSATE SODIUM 100MG CAPSULE PO PRN (12:00)
[2016-09-25] MEDS ORDERED: DIPHENHYDRAMINE 50MG/ML VIAL IV PRN (12:00)
[2016-09-25] MEDS ORDERED: NITROGLYCERIN 0.4MG TABLET SL SL PRN (12:00)
[2016-09-25] MEDS ORDERED: IPRATROPIUM/ALBUTEROL 0.5-3(2.5)MG/3ML NEB INH PRN (12:00)
[2016-09-25] MEDS ORDERED: KETOROLAC 15MG/ML VIAL IV PRN (12:00)
[2016-09-25] MEDS ORDERED: MAGNESIUM/ALUMINUM HYDROXIDE/SIMETHICONE 30ML UDC PO PRN (12:00)
[2016-09-25] MEDS ORDERED: GUAIFENESIN 200MG/10ML SUGAR FREE UDC PO PRN (12:00)
[2016-09-25] MEDS ORDERED: ACETAMINOPHEN 325MG TABLET PO PRN (12:00)
[2016-09-25] MEDS ORDERED: LORAZEPAM 2MG/ML CPJ IV PRN (12:00)
[2016-09-25] MEDS ORDERED: ONDANSETRON HCL 4MG/2ML VIAL IV PRN (12:00)
[2016-09-25] MEDS ORDERED: CLONIDINE 0.1MG TABLET PO PRN (12:00)
[2016-09-25] MEDS ORDERED: DILTIAZEM HCL 30MG TABLET PO SCH (13:00)
[2016-09-25] MEDS ORDERED: DEXTROSE 50% WATER 50ML SYRINGE IV PRN (13:12)
[2016-09-25] MEDS: INSULIN LISPRO 100 UNITS/ML SUBCUT SCH ×4 (13:48→21:30)
[2016-09-25] MEDS: SODIUM CHLORIDE 0.9% 1,000 ML IV SCH (14:07)
[2016-09-25] MEDS ORDERED: ENOXAPARIN 40MG/0.4ML SYR SUBCUT SCH (16:00)
[2016-09-25 16:31] LABS: TROPONIN I 0.4 ng/mL (0.00-0.04)
[2016-09-25] MEDS ORDERED: MONTELUKAST SODIUM 10MG TABLET PO SCH ×2 (17:00→17:27)
[2016-09-25] MEDS: BLOOD SUGAR DIAGNOSTIC STRIP TEST SCH ×2 (17:44→20:34)
[2016-09-25] MEDS: DILTIAZEM HCL 60MG TABLET PO SCH (18:34)
[2016-09-25] MEDS ORDERED: ZOLPIDEM TARTRATE 5MG TABLET PO PRN (20:00)
[2016-09-25] MEDS: GUAIFENESIN/DM 600MG/30MG ER TAB 12HR PO SCH (20:31)
[2016-09-25] MEDS ORDERED: ATORVASTATIN CALCIUM 10MG TABLET PO SCH (21:00)
[2016-09-25 21:55] LABS: CLARITY URINE CLOUDY (CLEAR); COLOR URINE ORANGE (YELLOW); KETONES URINE NEGATIVE (NEGATIVE); LEUKOCYTE ESTERASE URINE 3+ (NEGATIVE); NITRITE URINE POSITIVE (NEGATIVE); OCCULT BLOOD URINE TRACE (NEGATIVE); PH URINE 6.5 (4.5-8.0); PROTEIN URINE NEGATIVE (NEGATIVE); SPECIFIC GRAVITY URINE 1.012 (1.005-1.030); UROBILINOGEN URINE 0.2 E.U./dL (0.2-1.0)
[2016-09-25] MEDS ORDERED: INSULIN DETEMIR UD 100 UNITS/ML SYR SUBCUT SCH (22:00)
[2016-09-25 22:13] LABS: *AMPHETAMINES SCREEN URINE NEGATIVE (NEGATIVE); *BARBITURATES SCREEN URINE NEGATIVE (NEGATIVE); *BENZODIAZEPINES SCREEN URINE NEGATIVE (NEGATIVE); *COCAINE SCREEN URINE NEGATIVE (NEGATIVE); CANNABINOID URINE SCREEN NEGATIVE (NEGATIVE); METHADONE URINE SCREEN NEGATIVE (NEGATIVE); OPIATES URINE SCREEN NEGATIVE (NEGATIVE); PHENCYCLIDINE URINE SCREEN NEGATIVE (NEGATIVE)
[2016-09-25 23:02] LABS: CREATINE KINASE MB FRACTION 2.9 ng/mL (0.5-3.6); TROPONIN I 0.37 ng/mL (0.00-0.04)
[2016-09-26] MEDS: SODIUM CHLORIDE 0.9% 1,000 ML IV SCH (02:25)
[2016-09-26] MEDS: DILTIAZEM HCL 60MG TABLET PO SCH ×3 (05:28→12:00)
[2016-09-26] MEDS: BLOOD SUGAR DIAGNOSTIC STRIP TEST SCH (06:32)
[2016-09-26] MEDS: GUAIFENESIN/DM 600MG/30MG ER TAB 12HR PO SCH (08:19)
[2016-09-26] MEDS: INSULIN LISPRO 100 UNITS/ML SUBCUT SCH ×3 (08:19→12:46)
[2016-09-26] MEDS ORDERED: ASPIRIN 325MG EC TABLET PO SCH (09:00)
[2016-09-26] MEDS ORDERED: PANTOPRAZOLE SODIUM 40 MG/VIAL IV SCH (09:00)
[2016-09-26 12:14] VITALS: BP 98/68
== END 2016-09-26 13:00 | disposition home or self-care (01) | DRG 201 ==
LOC: ER 06:37 → 7WST 11:27 → EDBEDREQ 11:33 → ENRESERV 11:53
PROVIDERS: ADMIT Internal Medicine; ATTEND Internal Medicine
DX: I47.1 Supraventricular tachycardia (principal); E11.65 Type 2 diabetes mellitus with hyperglycemia; I10 Essential (primary) hypertension; J45.909 Unspecified asthma, uncomplicated; E78.00 Pure hypercholesterolemia, unspecified; E78.5 Hyperlipidemia, unspecified; Z79.4 Long term (current) use of insulin
CPT/HCPCS: 36415; 71010; 80053; 80061; 80305; 81001; 82550; 82553; 82962; 83036; 83880; 84484; 85025; 85379; 85610; 85730; 93005; 93970; 96374; 99291; C9113; J0153; J1650; J1815; J7030

== ENCOUNTER 2017-05-15 07:32 | Emergency (ER) | payer MEDICAID ==
[~2017-05-15] VITALS: Ht 172.7 cm; Wt 70.0 kg
[2017-05-15] MEDS ORDERED: PREDNISONE 20MG TABLET PO STA (08:49)
[2017-05-15] MEDS ORDERED: IPRATROPIUM BROMIDE (0.02%) 0.5MG/2.5ML NEB HHN STA (08:49)
[2017-05-15] MEDS: ALBUTEROL (0.083%) 2.5MG/3ML NEB HHN SCH ×3 (09:00→10:00)
[2017-05-15 09:10] LABS: BASOPHILS % 0.6 % (0.0-2.0); EOSINOPHILS % 9.2 % (0.0-5.0); HEMATOCRIT. 45.8 % (36.0-48.0); LYMPHOCYTES % 13.1 % (20.0-50.0); MEAN CORPUSCULAR HEMOGLOBIN 27.2 pg (28.0-32.0); MEAN PLATELET VOLUME 8.6 fl (7.4-10.4); MONOCYTES % 4.8 % (2.0-8.0); NEUTROPHILS % 72.3 % (40.0-76.0); PLATELET 257 x1000/uL (130-400); RED BLOOD CELL COUNT 5.53 mill/uL (4.2-5.4)
[2017-05-15 09:16] LABS: PROTHROMBIN TIME 10.3 sec (9.4-11.6)
[2017-05-15 09:19] LABS: CHLORIDE 101 mEq/L (98-107)
[2017-05-15 09:25] LABS: TROPONIN I < 0.02 ng/mL (0.00-0.04)
[2017-05-15] MEDS ORDERED: SODIUM CHLORIDE 0.9% 1,000 ML IV NR (11:30)
[2017-05-15] MEDS ORDERED: INSULIN REGULAR (HUMULIN R) 300UNITS/3ML SUBCUT ONE (14:15)
[2017-05-15 16:52] VITALS: BP 111/69
== END 2017-05-15 16:58 | disposition home or self-care (01) ==
LOC: ER 07:32
DX: J45.901 Unspecified asthma with (acute) exacerbation (principal); E11.65 Type 2 diabetes mellitus with hyperglycemia; D72.829 Elevated white blood cell count, unspecified; R00.0 Tachycardia, unspecified; E78.00 Pure hypercholesterolemia, unspecified; Z79.4 Long term (current) use of insulin
CPT/HCPCS: 36415; 71045; 80053; 82962; 83880; 84484; 85025; 85610; 93005; 94640; 96360; 96361; 96372; 99285; J1815; J7512; J7611

== ENCOUNTER 2017-08-25 03:32 | Inpatient (IN) | payer SELFPAY ==
[~2017-08-25] VITALS: Ht 167.6 cm; Wt 64.9 kg
[~2017-08-25 03:32] MED LIST changes: -METF10002 PO; +METF10004 PO; +P50 PO
[2017-08-25] MEDS ORDERED: IPRATROPIUM BROMIDE (0.02%) 0.5MG/2.5ML NEB HHN STA (04:17)
[2017-08-25] MEDS ORDERED: METHYLPREDNISOLONE SOD SUCC 125 MG/2 ML VIAL IV STA (04:17)
[2017-08-25] MEDS ORDERED: ALBUTEROL (0.083%) 2.5MG/3ML NEB HHN STA (04:17)
[2017-08-25] MEDS ORDERED: MAGNESIUM 2 G PREMIX 50 ML IV ONE (04:30)
[2017-08-25 05:06] LABS: BASOPHILS % 1.2 % (0.0-2.0); EOSINOPHILS % 11.9 % (0.0-5.0); HEMATOCRIT. 42.5 % (36.0-48.0); HEMOGLOBIN. 14.2 g/dL (12.0-16.0); LYMPHOCYTES % 19.5 % (20.0-50.0); MEAN CORPUSCULAR HEMOGLOBIN 27.9 pg (28.0-32.0); MEAN CORPUSCULAR VOLUME 83.7 fL (81.0-99.0); MONOCYTES % 7.9 % (2.0-8.0); NEUTROPHILS % 59.5 % (40.0-76.0); PLATELET 311 x1000/uL (130-400); RED BLOOD CELL COUNT 5.08 mill/uL (4.2-5.4); RED CELL DISTRIBUTION WIDTH 13.3 % (11.6-14.6)
[2017-08-25 05:10] LABS: CHLORIDE 102 mEq/L (98-107)
[2017-08-25 05:55] LABS: BG CARBOXYHEMOGLOBIN 0.5 % (0.5-1.5); BG DEOXYHEMOGLOBIN 1.5 % (0.0-5.0); BG FRACTION INSPIRED OXYGEN 45; BG HCO3 ACT 22.6 mmol/L (22.0-26.0); BG METHEMOGLOBIN 0.4 % (0.0-1.5); BG OXYGEN SATURATION 98.5 % (92.0-98.5); BG OXYHEMOGLOBIN 97.6 % (94.0-97.0); BG PCO2 38.5 mmHg (35.0-45.0); BG PH 7.387 (7.350-7.450); BG PO2 127.6 mmHg (75.0-100.0); BG SAMPLE SITE LEFT RADIAL; BG TOTAL HEMOGLOBIN 14.6 g/dL (12.0-18.0)
[2017-08-25 08:00] VITALS: BP 100/60
[2017-08-25 09:28] VITALS: BP 100/60
[2017-08-25] MEDS ORDERED: INSULIN GLARGINE UD 100 UNITS/ML SYR SUBCUT SCH (10:00)
[2017-08-25] MEDS ORDERED: MAGNESIUM/ALUMINUM HYDROXIDE/SIMETHICONE 30ML UDC PO PRN (10:45)
[2017-08-25] MEDS ORDERED: DOCUSATE SODIUM 100MG CAPSULE PO PRN (10:45)
[2017-08-25] MEDS ORDERED: ACETAMINOPHEN 325MG TABLET PO PRN (10:45)
[2017-08-25] MEDS ORDERED: IPRATROPIUM/ALBUTEROL 0.5-3(2.5)MG/3ML NEB INH PRN (10:45)
[2017-08-25] MEDS ORDERED: ONDANSETRON HCL 4MG/2ML VIAL IV PRN (10:45)
[2017-08-25] MEDS ORDERED: LORAZEPAM 2MG/ML CPJ IV PRN (10:45)
[2017-08-25] MEDS ORDERED: DEXTROSE 50% WATER 50ML SYRINGE IV PRN (10:45)
[2017-08-25] MEDS ORDERED: NA PHOS,M-B/NA PHOS,DI-BA ENEMA 118ML PR PRN (10:45)
[2017-08-25] MEDS ORDERED: DIPHENHYDRAMINE 50MG/ML VIAL IV PRN (10:45)
[2017-08-25] MEDS ORDERED: GUAIFENESIN 200MG/10ML SUGAR FREE UDC PO PRN (10:45)
[2017-08-25] MEDS: BLOOD SUGAR DIAGNOSTIC STRIP TEST SCH ×3 (11:52→21:44)
[2017-08-25 12:00] VITALS: BP 98/60
[2017-08-25] MEDS ORDERED: INSULIN LISPRO 100 UNITS/ML SUBCUT SCH (12:15)
[2017-08-25] MEDS ORDERED: INSULIN LISPRO 100 UNITS/ML SUBCUT NR (13:22)
[2017-08-25] MEDS: ASPIRIN 81MG EC TABLET PO SCH (13:47)
[2017-08-25] MEDS ORDERED: METHYLPREDNISOLONE SOD SUCC 40 MG/ML VIAL IV SCH (14:00)
[2017-08-25 16:00] VITALS: BP 105/65
[2017-08-25] MEDS ORDERED: IPRATROPIUM/ALBUTEROL 0.5-3(2.5)MG/3ML NEB HHN PRN (16:45)
[2017-08-25] MEDS ORDERED: MONTELUKAST SODIUM 10MG TABLET PO SCH (17:00)
[2017-08-25] MEDS: INSULIN LISPRO 100 UNITS/ML SUBCUT SCH ×3 (17:06→21:44)
[2017-08-25 20:00] VITALS: BP 111/62
[2017-08-25] MEDS: BUDESONIDE 0.5MG/2ML NEB HHN SCH (21:09)
[2017-08-25] MEDS: IPRATROPIUM/ALBUTEROL 0.5-3(2.5)MG/3ML NEB HHN SCH (21:09)
[2017-08-26] VITALS: BP 112/75
[2017-08-26] MEDS: IPRATROPIUM/ALBUTEROL 0.5-3(2.5)MG/3ML NEB HHN SCH ×3 (00:58→13:56)
[2017-08-26 04:00] VITALS: BP 105/69
[2017-08-26] MEDS: BLOOD SUGAR DIAGNOSTIC STRIP TEST SCH ×2 (06:40→12:31)
[2017-08-26] MEDS: INSULIN LISPRO 100 UNITS/ML SUBCUT SCH ×4 (06:40→12:31)
[2017-08-26 08:00] VITALS: BP 92/52
[2017-08-26] MEDS: BUDESONIDE 0.5MG/2ML NEB HHN SCH (08:58)
[2017-08-26] MEDS: ASPIRIN 81MG EC TABLET PO SCH (09:22)
[2017-08-26] MEDS ORDERED: INSULIN GLARGINE UD 100 UNITS/ML SYR SUBCUT SCH (10:00)
[2017-08-26 12:00] VITALS: BP 98/62
[2017-08-26 14:14] VITALS: BP 98/62
== END 2017-08-26 15:00 | disposition home or self-care (01) | DRG 133 ==
LOC: ER 03:32 → 5WST 05:15 → EDBEDREQ 05:19 → ENRESERV 07:07
PROVIDERS: ADMIT Internal Medicine; ATTEND Internal Medicine
DX: J96.01 Acute respiratory failure with hypoxia (principal); D72.1 Eosinophilia; J44.1 Chronic obstructive pulmonary disease with (acute) exacerbation; E11.65 Type 2 diabetes mellitus with hyperglycemia; J45.901 Unspecified asthma with (acute) exacerbation; T75.89XA Other specified effects of external causes, initial encounter; X58.XXXA Exposure to other specified factors, initial encounter; I10 Essential (primary) hypertension; Z79.84 Long term (current) use of oral hypoglycemic drugs; Z79.4 Long term (current) use of insulin; Z79.899 Other long term (current) drug therapy; Y93.89 Activity, other specified; Y92.89 Other specified places as the place of occurrence of the external cause; Y99.8 Other external cause status
CPT/HCPCS: 36415; 36600; 71045; 80048; 82375; 82805; 82962; 83880; 84484; 85025; 85379; 93005; 94640; 94644; J1815; J2920; J2930; J3475; J7611; J7620; J7626